=== PATIENT | male | born 1990 | race Caucasian/White ===

== ENCOUNTER 2020-06-20 18:00 | Emergency (ER) | payer MEDICAID ==
[~2020-06-20] VITALS: Ht 170.2 cm; Wt 112.7 kg
[2020-06-20 18:08] VITALS: BP 162/99
[2020-06-20] MEDS ORDERED: LIDOcaine 1% W/epiNEPHrine 1:200,000 10ml vial IJ ONE (18:30)
[2020-06-20] MEDS ORDERED: LIDOcaine 1% w/epiNEPHrine 1:200,000 30ml vial IJ ONE (18:35)
== END 2020-06-20 19:30 | disposition home or self-care (01) ==
LOC: ER 18:01
DX: S61.216A Laceration without foreign body of right little finger without damage to nail, initial encounter (principal); R20.0 Anesthesia of skin; Z72.89 Other problems related to lifestyle; W25.XXXA Contact with sharp glass, initial encounter; Y93.89 Activity, other specified; Y92.89 Other specified places as the place of occurrence of the external cause; Y99.8 Other external cause status
CPT/HCPCS: 12001; 73140; 99283